=== PATIENT | male | born 1965 | race Caucasian/White ===

== ENCOUNTER 2018-09-09 08:28 | Day surgery (SDC) | payer OTHER ==
[2018-09-09] VITALS (7 sets, daily range): BP systolic 120–126; BP diastolic 70–75
[~2018-09-09] VITALS: Ht 175.3 cm; Wt 77.1 kg
--- NOTE | 2018-09-09 06:54 | Anethesia Preoperative Eval ---
Anesthesia Pre-op PMH/ROS General Date of Evaluation: September 09, 2018 Time of Evaluation: 06:53 Anesthesiologist: isabel ASA Score: ASA 2 Mallampati Score Class I : Soft palate, uvula, fauces, pillars visible Class II: Soft palate, uvula, fauces visible Class III: Soft palate, base of uvula visible Class IV: Only hard plate visible Mallampati Classification: Class II Surgeon: iban Diagnosis: gerd Surgical Procedure: egd Anesthesia History: none Social History: smoking - nonsmoker Family History: no anesthesia problems Allergies: Coded Allergies: No Known Allergies (Unverified , 09/08/18) Medications: see eMAR Patient NPO?: Yes Past Medical History Gastrointestinal/Genitourinary: Reports: GERD, other - dysphagia HEENT: Reports: other - decreased visual acuity PSxH Narrative: septoplasty Anesthesia Pre-op Phys. Exam Physician Exam Last Vital Signs Date Time Temp Pulse Resp B/P (MAP) Pulse Ox O2 Delivery O2 Flow Rate FiO2 09/09/18 09:53 Room Air 09/09/18 09:34 97.4 58 18 120/75 100 Constitutional: NAD Neurologic: CN 2-12 intact Cardiovascular: RRR Respiratory: CTA Gastrointestinal: S/NT/ND Airway Exam Mallampati Score: Class II MO: limited Neck: flexible TMD: 2fb ROM: limited Anesthesia Pre-op A/P Risk Assessment & Plan Assessment: asa2 Plan: mac Status Change Before Surgery: No Pre-Antibiotics Drug: Lian Zaragoza MD September 09, 2018 06:54
[~2018-09-09 08:28] MED LIST: Atropine Inj 1mg/10ml Syr IV PRN; DEXILANT60 MG ORAL; DiphenhydrAMINE 50mg/ml Inj IVP PRN; Midazolam 2mg/2ml Inj IVP PRN; ZANTAC150 MG ORAL; fentaNYL 100 mcg/2 mL IV PRN
--- NOTE | 2018-09-09 10:18 | Short Stay Surgery H&P ---
History of Present Illness History of Present Illness Chief Complaint Dysphagia/abdominal pains/GERDs. HPI Shoaib South is a 53 year old male who was admitted on for GERD/dysphagia/ abdominal pains. Patient History Allergies: Coded Allergies: No Known Allergies (Unverified , 09/08/18) PAST MEDICAL HISTORY: (1) History of hip surgery Medication History Scheduled Dexlansoprazole (Dexilant), 60 MG ORAL DAILY, (Reported) Ranitidine Hcl* (Zantac*), 150 MG ORAL DAILY, (Reported) Review of Systems Cardiovascular: Reports: no symptoms Respiratory: Reports: no symptoms Skeletal: Reports: trauma Gastrointestinal: Reports: gastro esophageal reflux disease Genitourinary: Reports: no symptoms Neurologic: Reports: no symptoms Endocrine: Reports: no symptoms Hematologic: Reports: no symptoms Physical Exam Vital Signs Last Vital Signs Date Time Temp Pulse Resp B/P (MAP) Pulse Ox O2 Delivery O2 Flow Rate FiO2 09/09/18 09:53 Room Air 09/09/18 09:34 97.4 58 18 120/75 100 Skin: normal HENT: normal Heart: normal Lungs: normal Abdomen: abnormal Extremities: normal Genitourinary: normal Plan Plan of Care Upper GI endoscopy with biopsy Preop Interventions None. Summary of Findings see the reports Attestation Are the patient's medical conditions optimized for surgery? Attestation Response: yes Juliet Tucker MD September 09, 2018 10:18
--- NOTE | 2018-09-09 10:19 | Pre-Procedure Note/Attestation ---
Pre-Procedure Note/Attestation Complete Prior to Procedure Planned Procedure: left Procedure Narrative: Examination of the [facility] GI tact via endoscopy. Indications for Procedure Pre-Operative Diagnosis: R/O Gastritis/peptic ulcer/esophagitis Attestation I attest that I discussed the nature of the procedure; its benefits; risks and complications; and alternatives (and the risks and benefits of such alternatives ), prior to the procedure, with the patient (or the patient's legal payable representative). I attest that, if there was a reasonable possibility of needing a blood transfusion, the patient (or the patient's legal payable representative) was given the [place] [employer] [facility] [employer] [facility] standardized written summary, pursuant to the [place] Blood Safety Act ([place] Health and Safety Code # 1645, as amended). I attest that I re-evaluated the patient just prior to the surgery and that there has been no change in the patient's H&P, except as documented below: Juliet Tucker MD September 09, 2018 10:19
[2018-09-09] MEDS ORDERED: Propofol 200mg/20ml IV ONE (10:30)
[2018-09-09] MEDS ORDERED: LR 1000ml ONE (10:30)
[2018-09-09] MEDS ORDERED: Lidocaine 1% MPF 10mg/ml 5ml ONE (10:30)
--- NOTE | 2018-09-09 10:37 | Endoscopy Procedure Note ---
Endoscopy Procedure Note General Indication for Procedure: Abdominal pains/chronic Gerds. Dysphagia. Procedures Performed: EGD - Hiatal Hernia wih mild gastritis of the antrum c/w mild antritis. Biopsies obtained from antrum and gastric body. Specimen: yes Pt Tolerated Procedure Well: Yes Estimated Blood Loss: none Anesthesia Anesthesiologist: Dr. Vidal Anesthesia: moderate sedation Medications Medication Given: see anesthesia record Inserted Devices Implant(s) used?: No Quality Quality of Bowel Preparation: Excellent Was there any complications?: No GI Core Measures 50 yrs or older w/o bx or poly: Not Applicable 10yrs. F/U not recommended: Not Applicable If not recommended, why?: Med reason:<3 yrs.: System Reason:<3 yrs.: Juliet Tucker MD September 09, 2018 10:37
--- NOTE | 2018-09-09 10:38 | Discharge Instructions ---
Discharge Instructions Discharge Instructions Follow up with: Visit the doctor after 2 weeks in the office For Congestive Heart Failure Reminder Report to your physician any weight gain of 5 pounds or more in one week. Juliet Tucker MD September 09, 2018 10:38
--- NOTE | 2018-09-09 11:12 | Immediate Post-Op Evaluation ---
Immediate Post-Op Evalulation Immediate Post-Op Evalulation Procedure: egd w/bx Date of Evaluation: September 09, 2018 Time of Evaluation: 10:59 IV Fluids: 300ml lr Blood Products: none Estimated Blood Loss: negligible Blood Pressure Systolic: 126 Blood Pressure Diastolic: 73 Pulse Rate: 64 Respiratory Rate: 18 O2 Sat by Pulse Oximetry: 100 Temperature (Fahrenheit): 98.5 Pain Score (1-10): 0 Nausea: No Vomiting: No Complications none Patient Status: awake, reacts, patent Hydration Status: adequate Drug: Lian Zaragoza MD September 09, 2018 11:12
--- NOTE | 2018-09-09 11:14 | 48 Hour Post Anesthesia Eval ---
Post Anesthesia Evaluation Procedure: egd w/bx Date of Evaluation: September 09, 2018 Time of Evaluation: 11:01 Blood Pressure Systolic: 126 0: 74 Pulse Rate: 58 Respiratory Rate: 18 Temperature (Fahrenheit): 98.5 O2 Sat by Pulse Oximetry: 100 Airway: patent Nausea: No Vomiting: No Pain Intensity: 0 Hydration Status: adequate Cardiopulmonary Status: stable Mental Status/LOC: patient returned to baseline Post-Anesthesia Complications: none Follow-up care needed: N/A Lian Vidal MD September 09, 2018 11:13
--- NOTE | 2018-09-09 17:00 | Operative Note - Dictated ---
DATE OF OPERATION: 09/09/2018 SURGEON: Juliet Tucker M.D. PROCEDURE: Esophagogastroduodenoscopy with biopsy. PREOPERATIVE DIAGNOSES: History of chronic gastroesophageal acid reflux, gastroesophageal reflux disease, and dysphagia, rule out peptic ulcer disease. POSTOPERATIVE DIAGNOSES: 1. Evidence of hiatal hernia. 2. Mild gastritis of the antrum consistent with antritis. Biopsy was taken from gastric body and the antrum. MEDICATION USED: By anesthesiologist, Dr. Rivera. INSTRUMENT: GIF Olympus upper GI video endoscope. DESCRIPTION OF PROCEDURE: The patient after arriving in the endoscopy unit, was told about risks and benefits of the procedure, which he accepted and signed informed consent. He was then put on the left lateral decubitus position. After adequate IV sedation, the scope was gently passed through the cricopharyngeal area, was lodged into the upper esophagus and gradually advanced towards gastroesophageal junction. The entire length of esophagus looked normal, however, there was evidence of hiatal hernia of small/moderate size. There was no Toscano's. No ulceration was noted. At this time, the scope was advanced into the stomach. Gastric cavity was distended. Basically, the areas of the fundus and the body and the antrum were examined. The only finding was there was minimal inflammatory process in the area of the antrum consistent with antritis, but no ulcers or tumors or polyps were noted. At this time, one random biopsy from gastric body and the other biopsy was taken from the antrum and subsequently the scope was passed through the pylorus. First and second portion of duodenum were found to be completely normal. At this time, the scope was pulled back into the stomach. A retroflexion maneuver was applied. The area of the gastroesophageal junction was examined, which revealed normal findings. Finally, scope was pulled out and the procedure was terminated. The patient tolerated the procedure well, left the endoscopy room in a good condition. Juliet Tucker M.D. DR: ROM JOB#: [id number] CC:
--- NOTE | 2018-09-09 17:00 | Pre-op HX & Phy Repo 2 SIG ---
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 The applicant basically is complaining of experiencing pain and discomfort and severe heartburn. The pain is mostly located over the upper part of the abdomen and has been going on for many years for which he has also been receiving endoscopic examination by private physicians in the past and diagnosed to have gastroesophageal acid reflux. He has also been diagnosed to have esophagitis and dysphagia. At this point, he reports that he continues to have heartburn for which he has to take PPI such as Dexilant and also H2 rema such as Zantac for a long period of time that he is still taking. He also complains of having difficulty swallowing at times consistent with intermittent dysphagia. As I mentioned, he has been worked up in the past and received an upper gastrointestinal x-ray, which revealed evidence of Schatzki ring as well. Also, he was diagnosed to have hiatal hernia in that examination of x-ray. At this time, the applicant reports that his appetite is normal and there has not been any history of GI bleeding such as hematemesis, melena, or hematochezia. No constipation or diarrhea either. He denies any particular chest pain. 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 In the past, he has had history of heartburn and vomiting as he has been examined by his private deputy manager. He has also been followed at [facility] and received medications for heartburn such as Nexium in the past. PAST MEDICAL HISTORY: Basically unremarkable. He denies any history of hypertension, diabetes, or hyperlipidemia. PAST SURGICAL HISTORY: He has had history of right hip surgery related to condition of torn ligament, also had right knee operation in 1988. ALLERGIES: None significant. HABITS: He drinks occasionally two beers per week, but does not use illicit drugs or does not smoke cigarettes. FAMILY HISTORY: None significant. MEDICATIONS: Current medications are Zantac and Dexilant. REVIEW OF SYSTEMS: Basically history of present illness. He denies any shortness of breath or cough. No hemoptysis. No urinary symptoms at this time. PHYSICAL EXAMINATION: GENERAL: At this time reveals alert and well oriented very pleasant gentleman, does not seem to be in any acute distress. VITAL SIGNS: Blood pressure 120/75, temperature 95.4, pulse rate 58 per minute, oxygen saturation 100%, and respiratory rate 16. HEENT: Normocephalic. Pupils equal in size and reactive to light and accommodation. No visible jaundice. Buccal cavity, tongue midline, well hydrated. No ulcers. NECK: Supple. No JVD, thyromegaly, or adenopathy. CHEST: Clear to auscultation and percussion. No rales or rhonchi. HEART: S1, S2 normal. Regular rhythm. No gallops or murmur noted. ABDOMEN: Soft, but mild tender over the upper part of the abdomen, but no organomegaly or mass. Bowel sounds are adequately present. No percussion tenderness. EXTREMITIES: Unremarkable. SKIN AND LYMPHATICS: Nonsignificant. INITIAL PREOPERATIVE IMPRESSION: 1. History of chronic gastroesophageal reflux aggravated by presence of hiatal hernia and possibly stress related to work accidents. 2. History of dysphagia, possibly secondary to gastroesophageal reflux; rule out peptic ulcer disease, gastritis, esophagitis, etc. RECOMMENDATION: The applicant seems to be quite stable at this time to undergo the procedure of upper GI endoscopy for which he has been scheduled. He understands the risks and benefits and will sign the consent. Said Dejan Tucker DR: JESSICA JOB#: [id number] CC:
== END 2018-09-09 11:45 | disposition home or self-care (01) ==
LOC: GAS 08:28
DX: K21.9 Gastro-esophageal reflux disease without esophagitis (principal); R13.10 Dysphagia, unspecified; K44.9 Diaphragmatic hernia without obstruction or gangrene; K29.70 Gastritis, unspecified, without bleeding; Z79.899 Other long term (current) drug therapy
CPT/HCPCS: 43239; J2704; 94003; 94150